=== PATIENT | female | born 1995 | race Caucasian/White ===

== ENCOUNTER 2016-09-12 00:02 | Inpatient (IN) | payer OTHER ==
[~2016-09-12] VITALS: Ht 162.6 cm; Wt 75.5 kg
--- NOTE | 2016-09-12 02:46 | RADRPT ---
PROCEDURE: ULTRASOUND OBSTETRICAL CLINICAL INDICATION: 21-year-old female with vaginal bleeding and ruptured membranes. TECHNIQUE: Multiple sonographic images of the pelvis were obtained. The images were reviewed on a PACS workstation. COMPARISON: No prior studies are available for comparison. FINDINGS: The cervix is opening and dilated with fluid identified within the lower uterine segment. There is a single viable intrauterine gestation. Cardiac activity is present with 168 beats per minute. There is a vertex presentation. Measurements were made in order to determine age. The results are a s follows: BPD = 4.35 cm, HC = 17.09 cm, AC = 13.44 cm, FL = 2.91 cm. This yields and estimated gestational ag e of approximately 19 weeks 1 day. The estimated date of delivery is February 05, 2017. The EFW = 2 69 +/- 40 g. The GP is 7.1%. The placenta is anterior. There is no evidence for an abruption or placenta previa. There is an adequate amount of amniotic fluid with a maximal vertical pocket of 2.8 cm. IMPRESSION: 1. Single viable intrauterine gestation of approximately 19 weeks 1 day with vertex presentation. The estimated date of delivery is February 05, 2017. 2. Incompetent open dilated cervix. .Lobito Segura MD, Date Time Electronically viewed and signed by .Lobito Segura MD, on 09/12/2016 02:46 .Rani/
[2016-09-12 02:55] LABS: ADD SCAN DIFF NO
[2016-09-12 02:58] LABS: BASOPHIL # 0.1 10^3/ul (0.0-0.1); BASOPHILS % 0.3 % (0.0-2.0); EOSINOPHILS % 0.1 % (0.0-7.0); HEMATOCRIT 33.8 % (37.0-47.0); HEMOGLOBIN 11.6 g/dl (12.0-16.0); LYMPHOCYTES # 1.2 10^3/ul (0.8-2.9); LYMPHOCYTES % 7.8 % (15.0-51.0); MEAN CORPUSCULAR HEMOGLOBIN 30.3 pg (29.0-33.0); MEAN CORPUSCULAR HGB CONC 34.3 g/dl (32.0-37.0); MEAN CORPUSCULAR VOLUME 88.3 fl (82.0-101.0); MEAN PLATELET VOLUME 10.1 fl (7.4-10.4); MONOCYTE # 0.5 10^3/ul (0.3-0.9); NEUTROPHIL # 13.7 10^3/ul (1.6-7.5); NEUTROPHILS % 88.3 % (39.0-77.0); PLATELET COUNT 245 10^3/UL (140-415); RED BLOOD COUNT 3.83 10^6/ul (4.20-5.40); RED CELL DISTRIBUTION WIDTH 13.6 % (11.5-14.5); WHITE BLOOD COUNT 15.6 10^3/ul (4.8-10.8)
--- NOTE | 2016-09-12 03:36 | ERA ---
ER Documentation Chief Complaint Date/Time DATE: 09/12/16 TIME: 03:30 Chief Complaint Pt here for 2nd oppinion on threatened HPI 21-year-old female who is 19 weeks presents after being seen by another emergency department and diagnosed with a UTI. Patient's chief complaint is spotting 1 day. Patient is also complaining of a feeling of the baby falling out. She has brought the discharge papers with her from the previous hospital that shows urinary tract treatment with a threatened . Ultrasound results are brought with her as well which showed a dilated internal and external OS as well as short cervix/effacement. Patient has no other complaints. Denies dysuria, pain, fever, pruritus, discharge or change in movements. ROS All systems reviewed and are negative except as per history of present illness. PMhx/Soc Medical and Surgical Hx: pt denies Medical Hx, pt denies Surgical Hx Hx Alcohol Use: No Hx Substance Use: No Hx Tobacco Use: No Physical Exam Vitals Vital Signs Date Time Temp Pulse Resp B/P Pulse Ox O2 Delivery O2 Flow Rate FiO2 09/12/16 00:09 98.3 96 16 106/62 100 Physical Exam Const: 21-year-old otherwise healthy female who is 19 weeks Head: Atraumatic Eyes: Normal Conjunctiva ENT: Normal External Ears, Nose and Mouth. Neck: Full range of motion..~ No meningismus. Resp: Clear to auscultation bilaterally Cardio: Regular rate and rhythm, no murmurs Abd: Soft, non tender, non distended. Normal bowel sounds Skin: No petechiae or rashes Back: No midline or flank tenderness Ext: No cyanosis, or edema Neur: Awake and alert Psych: Normal Mood and Affect Reproductive exam as per OB notes. Result Diagram: 09/12/16 0158 Results 24 hrs Laboratory Tests Test 09/12/16 01:58 White Blood Count 15.610^3/ul Red Blood Count 3.8310^6/ul Hemoglobin 11.6g/dl Hematocrit 33.8% Mean Corpuscular Volume 88.3fl Mean Corpuscular Hemoglobin 30.3pg Mean Corpuscular Hemoglobin Concent 34.3g/dl Red Cell Distribution Width 13.6% Platelet Count 89099^3/UL Mean Platelet Volume 10.1fl Neutrophils % 88.3% Lymphocytes % 7.8% Monocytes % 3.0% Eosinophils % 0.1% Basophils % 0.3% Nucleated Red Blood Cells % 0.0/100WBC Neutrophils # 13.710^3/ul Lymphocytes # 1.210^3/ul Monocytes # 0.510^3/ul Eosinophils # 0.010^3/ul Basophils # 0.110^3/ul Nucleated Red Blood Cells # 0.010^3/ul Procedures/MDM Patient was evaluated and worked up for threatened and possible urinary tract infection. Ultrasounds were reordered and lab work reordered here. Ultrasound called and notified me that "the cervix is wide open". Went ahead enlisted the help of my supervising physician who had me call OB. I presented the case OB. OB did a speculum exam. With the results the patient was immediately taken for possible delivery versus cervical cerclage. The patient is now under the care of OB. Departure Diagnosis: Primary Impression: Vaginal bleeding in patient at less than 20 weeks gestation Condition: Stable Additional Instructions: Patient is under the care of OB. ROMANA YEUNG PA-C September 12, 2016 03:36
--- NOTE | 2016-09-12 04:20 | HP ---
Date/Time of Note Date/Time of Note DATE: 09/12/16 TIME: 04:16 OB - History Hx of Present Free Text/Dictation 21 y.o. G1 with an IUP at 19 weeks by US with an inevitable as pt is completely dilated on admission. : 1 Para: 0 Care: Good Care Obstetrical Complications: Other (Incompetent cervix?) Medical Complications: None Past Family/Social History * Past Medical, Surgical, Family and Obstetric Histories reviewed from chart. Blood Type: Unknown Rubella: unknown RPR/VDRL: Unknown GBS Status: Unknown HBsAG: Unknown OB Admission Exam Vital Signs Vital Signs Vital Signs Date Time Temp Pulse Resp B/P Pulse Ox O2 Delivery O2 Flow Rate FiO2 09/12/16 00:09 98.3 96 16 106/62 100 Physical Exam HEENT: WNL Heart: Rhythm Normal Abdomen: WNL Extremities: Normal Reflexes: Normal Cervical Dilatation: 10cm Effacement: 100% Station: +1 Membranes: Intact Heart Rate: 140's Last 72 hours Lab Results CBC & BMP 09/12/16 01:58 OB Assessment/Plan Reason for admission: active labor, IUP - Plan: Expectant Management GAGAN SALDIVAR MD September 12, 2016 04:20
[2016-09-12 04:30] VITALS: Ht 162.6 cm; Wt 75.5 kg
[2016-09-12 04:31] VITALS: BP 90/60; RESP 13
[2016-09-12] MEDS ORDERED: LIDOCAINE 1% (MPF) 30 ML INJ INJ PRN (05:00)
[2016-09-12] MEDS ORDERED: MISOPROSTOL 200 MCG TAB PR PRN ×2 (05:00→23:30)
[2016-09-12] MEDS ORDERED: CARBOPROST 250 MCG INJ IM PRN ×2 (05:00→23:30)
[2016-09-12] MEDS ORDERED: IBUPROFEN 600 MG TAB PO PRN (05:00)
[2016-09-12] MEDS ORDERED: OXYTOCIN 30 UNITS/LR 500 ML IV PRN ×2 (05:00→23:30)
[2016-09-12] MEDS ORDERED: ACETAMINOPHEN/CODEINE #3 TAB PO PRN (05:00)
[2016-09-12] MEDS ORDERED: OXYTOCIN 30 UNITS/LR 500 ML IV SCH ×2 (05:00)
[2016-09-12] MEDS ORDERED: LACTATED RINGER'S 1,000 ML IV PRN (05:00)
[2016-09-12] MEDS ORDERED: METHYLERGONOVINE 0.2 MG INJ IM PRN ×2 (05:00→23:30)
[2016-09-12] MEDS: LACTATED RINGER'S 1,000 ML IV SCH ×2 (05:11→13:46)
[2016-09-12 06:39] LABS: ADD SCAN DIFF NO
[2016-09-12 06:44] LABS: INR 0.93; PROTIME 12.5 Sec (12.2-14.2)
[2016-09-12 06:45] LABS: PARTIAL THROMBOPLASTIN TIME 32.6 Sec (25.0-35.0)
[2016-09-12 07:11] LABS: BASOPHILS % 0.3 % (0.0-2.0); EOSINOPHILS % 0.1 % (0.0-7.0); HEMATOCRIT 31.9 % (37.0-47.0); HEMOGLOBIN 11.1 g/dl (12.0-16.0); LYMPHOCYTES # 1.4 10^3/ul (0.8-2.9); LYMPHOCYTES % 10.1 % (15.0-51.0); MEAN CORPUSCULAR HEMOGLOBIN 30.7 pg (29.0-33.0); MEAN CORPUSCULAR HGB CONC 34.8 g/dl (32.0-37.0); MEAN CORPUSCULAR VOLUME 88.4 fl (82.0-101.0); MEAN PLATELET VOLUME 10.4 fl (7.4-10.4); MONOCYTE # 0.5 10^3/ul (0.3-0.9); MONOCYTES % 3.8 % (0.0-11.0); NEUTROPHILS % 85.3 % (39.0-77.0); PLATELET COUNT 261 10^3/UL (140-415); RED BLOOD COUNT 3.61 10^6/ul (4.20-5.40); RED CELL DISTRIBUTION WIDTH 13.4 % (11.5-14.5); WHITE BLOOD COUNT 14.1 10^3/ul (4.8-10.8)
[2016-09-12] MEDS ORDERED: MINERAL OIL LIGHT 10 ML VIAL TOP PRN (08:35)
--- NOTE | 2016-09-12 09:24 | RADRPT ---
PROCEDURE: Limited obstetric ultrasound CLINICAL INDICATION: Pain TECHNIQUE: Multiple transverse and longitudinal grayscale images of the pelvis were obtained resendez sabdominally and transvaginally.. COMPARISON: same day FINDINGS: The cervix is dilated up to 5 cm. There is a single viable intrauterine gestation. Cardiac activity is present with 168 beats per min altagracia. There is a vertex/variable presentation. The placenta is anterior. There is no evidence for an abruption or placenta previa. RPTAT: AA IMPRESSION: Cervix is dilated up to 5 cm. presentation is vertex/variable. .Jd Sims MD, Date Time Electronically viewed and signed by .Jd Sims MD, on 09/12/2016 09:23 .S/
--- NOTE | 2016-09-12 17:57 | QN ---
Documentation Comment 19 weeks with bulging membrane in the vaginal canal originally thought that she is completely dilated, pelvic examination at approximately 8:00 a.m. after bypass the bulging bag', cervix was 1-2 cm dilated with 60 to70% effacement', examination at 1745 cervical dilatation progress to 4-cm the bag is still intact and bulging inside of the vaginal canal ,ultrasound reports cervix 5 cm, presentation vertex/variable, heart rate in 160s. We will request perinatology consult for plan of treatment YANELI CASTAÑEDA MD September 12, 2016 17:52
--- NOTE | 2016-09-12 20:52 | QN ---
Documentation Comment On-Call Laborist 19+1 with prolapsing membranes and cervical dilation initially being expectantly managed. Dr. Brizuela requested Perinatology consult regarding further management. Day RN spoke with on-call Perinatologist, Dr. Odell, who recommended proceeding with delivery for this patient given previable dilation with ROM. Pt c/o mild UCs every few minutes. Otherwise, denies c/o. VS T97.8. BP 111/68, HR 83 [place] q3-4 min UCs Gen: tearful, affect appropriate Abd soft, NT Labs and U/S reviewed from AM A/P Pt currently stable without evidence of infection. Discussed perinatologist's recommendations and pt amenable to immediate delivery. Will start induction with 400mcg Misoprostol SL q3H for up to 5 doses. Pain meds prn. Also discussed risks of retained placenta, hemorrhage and D&C with pt and partner. Risks of D&C discussed include but are not limited to pain, bleeding, infection, uterine perforation, damage to intraabdominal organs/structures, need for exploratory laparotomy. Pt also made aware of risks with transfusion of blood products. Pt had an opportunity to ask questions and have them answered prior to signing consents for delivery, transfusion of blood products and possible D&C. TAHIRA MCDONOUGH MD September 12, 2016 20:52
[2016-09-12] MEDS ORDERED: MISOPROSTOL 200 MCG TAB SL SCH (21:00)
[2016-09-12] MEDS ORDERED: BUTORPHANOL 2 MG INJ IV PRN (22:00)
[2016-09-12] MEDS ORDERED: ONDANSETRON 4 MG INJ IV PRN ×2 (22:00→23:30)
[2016-09-12] MEDS ORDERED: LACTATED RINGER'S 1,000 ML IV* SCH (23:04)
--- NOTE | 2016-09-12 23:04 | LDN ---
Date/Time of Note Date/Time of Note DATE: 09/12/16 TIME: 22:59 Delivery Summary Called to room for precipitous of non-viable female fetus. No respiratory effort and cord without pulsations at time of entrance to room. Placenta delivered completely with fetus. Vaginal bleeding minimal. Vagina and perineum intact on inspection. Fundus firm following delivery. Weeks of Gestation 19 Placenta Delivered: Spontaneously Meconium: Light Episiotomy: No Anesthesia type: None Estimated blood loss: 50 Sponge & Needle done & correct: Yes All needle counts correct: Yes Any foreign bodies felt in the: No Problems: Infant Delivery Information Sex Sex: female Suctioning Nose & mouth suctioned at caroline: No Delee suction performed: No Umbilical Cord Cord presentations: no nuchal cord Mother & Baby Disposition Disposition Placenta cultured and sent to Pathology. Fetus in room with pt and FOB. Mom & Baby to Maternity; Good: No Mom transferred to: Antepartum (for recovery) Baby to NICU: No TAHIRA MCDONOUGH MD September 12, 2016 23:04
[2016-09-12] MEDS ORDERED: ACETAMINOPHEN 325 MG TAB PO PRN (23:30)
[2016-09-12] MEDS ORDERED: SENNA/DOCUSATE NA (8.6MG/50MG) TAB PO PRN (23:30)
[2016-09-12] MEDS ORDERED: DIPHENHYDRAMINE 50 MG INJ IV PRN (23:30)
[2016-09-13] MEDS: IBUPROFEN 600 MG TAB PO SCH ×2 (01:18→06:00)
[2016-09-13 06:10] LABS: ADD SCAN DIFF NO
[2016-09-13 06:21] LABS: BASOPHILS % 0.3 % (0.0-2.0); EOSINOPHILS # 0.1 10^3/ul (0.0-0.5); EOSINOPHILS % 0.5 % (0.0-7.0); HEMATOCRIT 31.1 % (37.0-47.0); HEMOGLOBIN 10.7 g/dl (12.0-16.0); LYMPHOCYTES % 16.3 % (15.0-51.0); MEAN CORPUSCULAR HEMOGLOBIN 30.5 pg (29.0-33.0); MEAN CORPUSCULAR HGB CONC 34.4 g/dl (32.0-37.0); MEAN CORPUSCULAR VOLUME 88.6 fl (82.0-101.0); MEAN PLATELET VOLUME 10.1 fl (7.4-10.4); MONOCYTE # 0.8 10^3/ul (0.3-0.9); MONOCYTES % 6.2 % (0.0-11.0); NEUTROPHIL # 9.3 10^3/ul (1.6-7.5); NEUTROPHILS % 76.3 % (39.0-77.0); PLATELET COUNT 233 10^3/UL (140-415); RED BLOOD COUNT 3.51 10^6/ul (4.20-5.40); RED CELL DISTRIBUTION WIDTH 13.4 % (11.5-14.5); WHITE BLOOD COUNT 12.2 10^3/ul (4.8-10.8)
--- NOTE | 2016-09-13 12:26 | PD.PPDC ---
[facility] [employer] Discharge Instruction Condition Patient Condition: Good Diet Diet: Resume Regular Diet Activity/Restrictions Activity: Normal Activity May Shower Restrictions: No Exercising No Lifting No Driving No Sexual Activity Nothing in the Vagina No [place] No Tampons, douche Follow-up Follow-up with Physician: 2, Week/Weeks Provider Information: Appointment clinic in 2 weeks Return to clinic for NEUROPHYSIOLOGICAL TECHNICIAN Instructions: Fever greater than 101 [place] Worsening abdominal pain Excessive Vaginal Bleeding More than 2 pads per hour Unable to tolerate diet YANELI CASTAÑEDA MD September 13, 2016 12:26
--- NOTE | 2016-09-13 12:31 | DS ---
Date/Time of Note Date/Time of Note DATE: 09/13/16 TIME: 12:27 Discharge Summary Admission/Discharge Info Admit Date/Time September 12, 2016 at 03:25 Discharge Date/Time September 13, 2016 at 1227 Final Diagnosis 19 weeks , demised baby, responded well to Cytotec normal vaginal delivery Procedures Spontaneous vaginal delivery of 19 weeks demised fetus. Hx of Present Illness 19pregnancy with demise Hospital Course Uneventful normal postdelivery lochia discharge home with a follow-up instruction Follow-up Plan Appointment clinic in 2 weeks Primary Care Provider Care Physician No Primary Time spent on discharge: < 30 minutes Pending Labs Laboratory Tests Test 09/13/16 05:45 White Blood Count 12.210^3/ul (4.8-10.8) Red Blood Count 3.5110^6/ul (4.20-5.40) Hemoglobin 10.7g/dl (12.0-16.0) Hematocrit 31.1% (37.0-47.0) Mean Corpuscular Volume 88.6fl (82.0-101.0) Mean Corpuscular Hemoglobin 30.5pg (29.0-33.0) Mean Corpuscular Hemoglobin Concent 34.4g/dl (32.0-37.0) Red Cell Distribution Width 13.4% (11.5-14.5) Platelet Count 56455^3/UL (140-415) Mean Platelet Volume 10.1fl (7.4-10.4) Neutrophils % 76.3% (39.0-77.0) Lymphocytes % 16.3% (15.0-51.0) Monocytes % 6.2% (0.0-11.0) Eosinophils % 0.5% (0.0-7.0) Basophils % 0.3% (0.0-2.0) Nucleated Red Blood Cells % 0.0/100WBC (0.0-0.0) Neutrophils # 9.310^3/ul (1.6-7.5) Lymphocytes # 2.010^3/ul (0.8-2.9) Monocytes # 0.810^3/ul (0.3-0.9) Eosinophils # 0.110^3/ul (0.0-0.5) Basophils # 0.010^3/ul (0.0-0.1) Nucleated Red Blood Cells # 0.010^3/ul (0.0-0.0) YANELI CASTAÑEDA MD September 13, 2016 12:31
== END 2016-09-13 16:49 | disposition home or self-care (01) | DRG 770 ==
LOC: FTE 00:02 → L-D 03:25 → OBG 03:25
PROVIDERS: ADMIT Obstetrics & Gynecology; ATTEND Obstetrics & Gynecology
PROC: 10D17ZZ Extraction of Products of Conception, Retained, Via Natural or Artificial Opening (ICD-10-PCS; principal; 2016-09-12)
PROC: 3E033VJ Introduction of Other Hormone into Peripheral Vein, Percutaneous Approach (ICD-10-PCS; 2016-09-12)
DX: O02.1 Missed abortion (principal)
CPT/HCPCS: 36415; 76805; 76815; 84702; 85025; 85610; 85730; 86592; 86900; 86901; 87070; 87340; 88307; J2590; J7120

== ENCOUNTER 2016-12-12 15:18 | Emergency (ER) | payer OTHER ==
[~2016-12-12] VITALS: Wt 80.5 kg
[2016-12-12 17:22] LABS: BASOPHIL # 0.1 10^3/ul (0.0-0.1); BASOPHILS % 0.6 % (0.0-2.0); EOSINOPHILS # 0.1 10^3/ul (0.0-0.5); EOSINOPHILS % 0.8 % (0.0-7.0); HEMATOCRIT 35.7 % (37.0-47.0); HEMOGLOBIN 12.3 g/dl (12.0-16.0); LYMPHOCYTES # 1.9 10^3/ul (0.8-2.9); LYMPHOCYTES % 21.3 % (15.0-51.0); MEAN CORPUSCULAR HEMOGLOBIN 30.1 pg (29.0-33.0); MEAN CORPUSCULAR HGB CONC 34.5 g/dl (32.0-37.0); MEAN CORPUSCULAR VOLUME 87.3 fl (82.0-101.0); MEAN PLATELET VOLUME 9.3 fl (7.4-10.4); MONOCYTE # 0.5 10^3/ul (0.3-0.9); MONOCYTES % 5.6 % (0.0-11.0); NEUTROPHILS % 71.4 % (39.0-77.0); PLATELET COUNT 309 10^3/UL (140-415); RED BLOOD COUNT 4.09 10^6/ul (4.20-5.40); RED CELL DISTRIBUTION WIDTH 13.4 % (11.5-14.5); WHITE BLOOD COUNT 8.8 10^3/ul (4.8-10.8)
[2016-12-12 17:28] LABS: ADD UMIC YES; UR ASCORBIC ACID 40 mg/dL (NEGATIVE); UR BILIRUBIN (Dip) NEGATIVE (NEGATIVE); UR BLOOD (Dip) 3+ mg/dL (NEGATIVE); UR CLARITY SLIGHTLY CLOUDY (CLEAR); UR COLOR AMBER (YELLOW); UR GLUCOSE (Dip) NEGATIVE (NEGATIVE); UR KETONES (Dip) TRACE mg/dL (NEGATIVE); UR LEUKOCYTE ESTERASE (Dip) NEGATIVE Leu/ul (NEGATIVE); UR MUCUS MANY /HPF (NONE SEEN); UR NITRITE (Dip) NEGATIVE (NEGATIVE); UR RBC > 182 /HPF (0-5); UR SPECIFIC GRAVITY (Dip) 1.032 (1.003-1.030); UR SQUAMOUS EPITHELIAL CELL FEW /HPF (FEW); UR TOTAL PROTEIN (Dip) 1+ mg/dl (NEGATIVE); UR UROBILINOGEN (Dip) NEGATIVE (NEGATIVE)
--- NOTE | 2016-12-12 19:19 | RADRPT ---
PROCEDURE: FIRST TRIMESTER OBSTETRICAL ULTRASOUND: CLINICAL INDICATION: 21 years of age, female. Vaginal bleeding. . . COMPARISON: None available. TECHNIQUE: Real-time sonographic images of the pelvis were obtained transabdominally and transvagina lly utilizing sauer scale, color, and Doppler imaging. FINDINGS: LMP October 21, 2016 EGA by dates: 7 weeks 3 days ZAHEER by dates: July 28, 2017 Uterus: Anteverted . Myometrium is normal. Gestational sac: Negative for evidence of an intrauterine gestational sac. Endometrium measures 0.7 cm. Negative for hyperemia. Cervix: Closed. Right ovary: Size: 3.2 x 1.8 x 1.5 cm. (Vol 4.5mL) Appearance: Normal morphology. No masses. Arterial and venous flow is identified. Left ovary: Size: 2.5 x 1.3 x 1.4 cm. (Vol 2.3 mL) Appearance: Normal morphology. No masses. venous flow is identified. Bladder: Visualized bladder is normal. Other: No free fluid. IMPRESSION: Negative for evidence of an intrauterine and negative for evidence of an adnexal mass. If there is a positive Beta HCG, this represents a of unknown location and differential diag nosis includes early , failed or ectopic . Recommend correlation with s erial beta HCG and follow-up ultrasound if clinically warranted. RPTAT: HCTS Physician Cheryl Date Time Electronically viewed and signed by Physician Cheryl on 12/12/2016 19:19 CS/
--- NOTE | 2016-12-12 19:23 | RADRPT ---
PROCEDURE: FIRST TRIMESTER OBSTETRICAL ULTRASOUND: CLINICAL INDICATION: 21 years of age, female. Vaginal bleeding . COMPARISON: None available. TECHNIQUE: Real-time sonographic images of the pelvis were obtained transabdominally and transvagina lly utilizing sauer scale, color, and Doppler imaging. FINDINGS: LMP October 21, 2016 EGA by dates: 7 weeks 3 days ZAHEER by dates: July 28, 2017 Uterus: Anteverted. Myometrium is normal. . Negative for intrauterine gestational sac. Endometrium: 0.7 cm. Negative for hyperemia. Cervix: Closed. Right ovary: Size: 3.2 x 1.8 x 1.5 cm. (Vol 4.5 mL) Appearance: Normal morphology. No masses. Arterial and venous flow identified Left ovary: Size: 2.5 x 1.3 x 1.4 cm. (Vol 2.3 mL) Appearance: Normal morphology. No masses. Venous flow is identified Bladder: Visualized bladder is normal. Other: No free fluid. IMPRESSION: Negative for evidence of an intrauterine and negative for adnexal mass. If there is a pos itive Beta HCG, this represents a of unknown location and the differential diagnosis inclu bobby early intrauterine , failed or ectopic . Recommend correlation with serial Beta HCG and follow-up ultrasound if clinically warranted. RPTAT: HCTS Physician Cheryl Date Time Electronically viewed and signed by Physician Cheryl on 12/12/2016 19:23 CS/
[2016-12-12 20:30] VITALS: BP 119/74; PULSE 67; RESP 17; TEMP 98.3
--- NOTE | 2016-12-31 11:53 | ERD ---
ER Documentation Chief Complaint Date/Time DATE: 12/31/16 TIME: 11:52 Chief Complaint 7 WEEKS WITH SPOTTING HPI 21-year-old female who states that she is 7 weeks presents to the emergency department complaining of vaginal spotting and mild pelvic pain for the past day. Patient denies any fevers, dysuria. She states she passed a blood clot and has brought it with her on a napkin. ROS All systems reviewed and are negative except as per history of present illness. Allergies Allergies: Coded Allergies: No Known Allergy (Unverified , 09/12/16) PMhx/Soc Medical and Surgical Hx: pt denies Medical Hx, pt denies Surgical Hx Hx Alcohol Use: No Hx Substance Use: No Hx Tobacco Use: No Smoking Status: Never smoker Physical Exam Physical Exam Const: [] Head: Atraumatic Eyes: Normal Conjunctiva ENT: Normal External Ears, Nose and Mouth. Neck: Full range of motion..~ No meningismus. Resp: Clear to auscultation bilaterally Cardio: Regular rate and rhythm, no murmurs Abd: Soft, non tender, non distended. Normal bowel sounds Skin: No petechiae or rashes Back: No midline or flank tenderness Ext: No cyanosis, or edema Neur: Awake and alert Psych: Normal Mood and Affect Results 24 hrs Laboratory Tests Test 12/12/16 17:04 White Blood Count 8.810^3/ul Red Blood Count 4.0910^6/ul Hemoglobin 12.3g/dl Hematocrit 35.7% Mean Corpuscular Volume 87.3fl Mean Corpuscular Hemoglobin 30.1pg Mean Corpuscular Hemoglobin Concent 34.5g/dl Red Cell Distribution Width 13.4% Platelet Count 44379^3/UL Mean Platelet Volume 9.3fl Neutrophils % 71.4% Lymphocytes % 21.3% Monocytes % 5.6% Eosinophils % 0.8% Basophils % 0.6% Nucleated Red Blood Cells % 0.0/100WBC Neutrophils # (Manual) 6.310^3/ul Lymphocytes # 1.910^3/ul Monocytes # 0.510^3/ul Eosinophils # 0.110^3/ul Basophils # 0.110^3/ul Nucleated Red Blood Cells # 0.010^3/ul Urine Color MARVIN Urine Clarity SLIGHTLY CLOUDY Urine pH 5.0 Urine Specific [place] 1.032 Urine Ketones TRACEmg/dL Urine Nitrite NEGATIVEmg/dL Urine Bilirubin NEGATIVEmg/dL Urine Urobilinogen NEGATIVEmg/dL Urine Leukocyte Esterase NEGATIVELeu/ul Urine Microscopic RBC > 182/HPF Urine Microscopic WBC 3/HPF Urine Squamous Epithelial Cells FEW/HPF Urine Mucus MANY/HPF Urine Hemoglobin 3+mg/dL Urine Glucose NEGATIVEmg/dL Urine Total Protein 1+mg/dl Beta HCG, Quantitative 2185.5mIU/ml Procedures/MDM 21-year-old female states that she is 7 weeks presents to the emergency department complaining of vaginal spotting and mild pelvic pain for the past day. Patient also states that she passed a blood clot on a piece of napkin and has brought with her. That blood clot was sent out to cytology. Differentials include but not limited to Failed , early pregnanc,y ectopic , idiopathic, urinary tract infection versus other. CBC was drawn that showed no evidence of obstruction or anemia. Beta-hCG was 2185 which is in normal limits. Urinalysis was positive positive for a urinary tract infection therefore patient was given Keflex for treatment. OB ultrasound was done and radiologist stated: Negative for evidence of an intrauterine and negative for evidence of an adnexal mass. If there is a positive Beta HCG, this represents a of unknown location and differential diagnosis includes early , failed or ectopic . Recommend correlation with serial beta HCG and follow-up ultrasound if clinically warranted. Patient is hemodynamically stable to be discharged home to follow-up with OB/ STUDENT SUPPORT ADVISOR. Discussed return to the ER for worsening signs or symptoms. She understands and agrees with plan Departure Diagnosis: Primary Impression: Vaginal bleeding in patient at less than 20 weeks ges... Condition: Fair Patient Instructions: Bleeding During Early Referrals: NO PRIMARY,CARE PHYSICIAN (PCP) Additional Instructions: Return to this facility in 2 DAYS for a follow-up exam.Return sooner if your condition worsens. Return to this facility if you are not improving as expected. OVIDIO GARNER PA-C Dec 31, 2016 11:53
== END 2016-12-12 20:30 | disposition home or self-care (01) ==
LOC: FTE 15:18
DX: O20.9 Hemorrhage in early pregnancy, unspecified (principal); Z3A.01 Less than 8 weeks gestation of pregnancy
CPT/HCPCS: 36415; 76801; 76817; 81001; 84702; 85025; 86900; 86901; 88305; Z7502